=== PATIENT | male | born 1965 | race Caucasian/White ===

== ENCOUNTER 2021-06-02 09:50 | Emergency (ER) | payer MEDICARE, SELFPAY ==
--- NOTE | ~2021-06-02 | XR_ITS ---
EXAMINATION: XR CHEST CLINICAL INFORMATION: Cough. COMPARISON: Chest 12/22/2010. TECHNIQUE: 2 views of the chest were obtained. FINDINGS: Well-expanded and clear of acute process. There is minimal bilateral apical pleural thickening. The heart size and perivascular is normal. No gross bony abnormality. XR/XR chest 2V IMPRESSION: No acute pulmonary process seen. No major change from 2010
[2021-06-02 10:54] VITALS: BP 127/70; PULSE 58; RESP 15; TEMP 36.9; O2SAT 97; BMI 34.7
[2021-06-02 11:08] LABS: MANUAL DIFF FLAG NO
--- NOTE | 2021-06-02 11:17 | ED_ITS ---
HPI - General Adult General Chief complaint: Upper Respiratory Symptoms Stated complaint: vomiting blood Time Seen by Provider: 06/02/21 11:15 Source: patient, RN notes reviewed and ben day artist Mode of arrival: ambulatory Limitations: language barrier History of Present Illness HPI narrative: 55-year-old male with past medical history of seizures, hypertension, hypercholesteremia is here today for complaining of headache, cough, rhinorrhea, since last week. Patient reports that he had no ill contacts. Denies any subjective fever chills. Patient reports that when he wakes up in the morning his eyes feel very crusty, hard to open them up without washing them out with warm water. Reports to have a sinus pressure in the frontal and paranasal areas. Patient is here from [place], he is visiting friends for holidays. Patient reports that he has been coughing a lot and this morning when he coughed he had smears of blood in his sputum. Patient denies any chest pain. Reports that he has been constipated and does not remember when he actually had a bowel movement. Patient reports to have low back pain and back rib pain from coughing Onset (ago): day(s) Location: head and eyes Related Data Previous Rx's Medication Instructions Recorded albuterol sulfate 90 mcg/actuation 1 inh INHALATION QID PRN #8.5 g 06/02/21 aerosol inhaler benzonatate 100 mg capsule 100 mg PO BID PRN #20 cap 06/02/21 erythromycin 5 mg/gram (0.5 %) eye 0.5 inch OPHTHALMIC (EYE) BID #1 g 06/02/21 ointment ipratropium 20 mcg-albuterol 100 1 puff INHALATION Q6H #4 g 06/02/21 mcg/actuation mist for inhalation (Combivent Respimat) sennosides 8.6 mg tablet (Senokot) 8.6 mg PO BEDTIME PRN #20 tab 06/02/21 Allergies Allergy/AdvReac Type Severity Reaction Status Date / Time No Known Allergies Allergy Mild N/A Unverified 03/18/20 17:31 Review of Systems Review of Systems: Constitutional : No Weight loss, No Fever, No Chills, No Night Sweats, No Fatigue, No Malaise ENT/Mouth : No Hearing loss, No Ear Pain, Nasal Congestion, Sinus Pain, No Hoarseness, No sore throat, Rhinorrhea, No Swallowing Difficulty Eyes: No Eye Pain, No Swelling, No Redness, No Foreign Body, No Discharge, No Vision Changes Cardiovascular : No Chest Pain, No SOB, No Dyspnea on Exertion, No Orthopnea, No Edema, No Palpitations Respiratory : Cough, phlegm tinged with blood, No Wheezing, No Smoke Exposure, No Dyspnea Gastrointestinal : No Nausea, No Vomiting, No Diarrhea, No Constipation, No a bdominal Pain, No Hematochezia, No Melena Genitourinary : no irregular bleeding, No Dysuria, No Urinary Frequency, No Hematuria, No Urinary Incontinence, No Urgency, No Flank Pain, No Urinary Flow Changes, No Hesitancy Musculoskeletal : No joint pain, No Myalgias, No Joint Swelling Skin : No Skin Lesions, No rash Neuro : No Weakness, No Numbness, No Paresthesias, No Loss of Consciousness, No Dizziness, No Headache Psych : No Anxiety/Panic, No Depression, No SI/HI/AH/VH, No Social Issues, Yes all other systems are reviewed and are negative [facility] Past Medical History Medical History (Updated 06/02/21 @ 13:04 by Elayne Monaco, [facility]) Angina pectoris HTN (hypertension) Hypercholesteremia Seizures Social History Social History Advance Directives: No Advance Directives Information Provided: No Physical Exam Vital Signs: Vital Signs: Last Vital Signs Temp 97.5 F 06/02/21 12:42 Pulse 58 06/02/21 12:42 Resp 17 06/02/21 12:42 BP 119/62 06/02/21 12:42 Pulse Ox 96 06/02/21 12:42 BMI result Body Mass Index 34.7 Course Course Course Narrative: 55-year-old male with past medical history of hypertension, seizures, hyperlipidemia is here for multiple complaints. Patient reports to have headache, frontal sinuses and the paranasal sinuses tenderness. He reports that he has been coughing, cold symptoms, rhinorrhea, no fever chills, no ill contacts. Blood-tinged sputum this morning no yumiko blood. Patient reports lower back pain and rib pain from coughing. Patient also reports that he is constipated and has not had a bowel movement for several days. Exam negative for any tenderness, distension. Will do chest x-ray, CBC, CMP Reevaluation(s) Reevaluation #1: Chest x-ray negative for any acute processes. Lab negative for leukocytosis, normal chemistry. Will send patient home with Tessalon Perles, erythromycin ointment for conjunctivitis bilaterally. Patient is also constipated I will send him home with script for Senokot and docusate sodium Medical Decision Making Lab Data Result diagrams: 06/02/21 11:04 06/02/21 11:04 Labs: Lab Results 06/02/21 06/02/21 06/02/21 Range/Units 11:04 11:04 11:04 WBC 6.5 (4.8-10.8) X10*3/uL RBC 4.00 L (4.60-5.80) X10*6/uL Hgb 12.2 L (14.0-18.0) g/dl Hct 36.8 L (42.0-52.0) % MCV 92.0 (80.0-98.0) fL MCH 30.5 (27.0-33.0) pg MCHC 33.2 (31.0-36.0) g/dl RDW 12.9 (11.0-16.0) % Plt Count 306 (160-400) X10*3/uL MPV 10.8 (9.4-12.4) fL Immature Gran % (Auto) 0.2 (0.0-0.4) % Neut % (Auto) 60.9 (45-73) % Lymph % (Auto) 29.1 (20-40) % [place] % (Auto) 7.7 (2-11) % Eos % (Auto) 1.8 (0-4) % Baso % (Auto) 0.3 (0-2) % Lymph # (Auto) 1.9 (1.2-4.9) X10*3/uL [place] # (Auto) 0.5 (0.1-1.2) X10*3/uL Eos # (Auto) 0.1 (0.0-0.4) X10*3/uL Baso # (Auto) 0.0 (0.0-0.2) X10*3/uL Abs Immat Gran (auto) 0.01 (0.00-0.03) X10*3/uL Absolute Neuts (auto) 4.0 (2.0-8.3) x10*3/uL Absolute Nucleated RBC 0.000 (0.0-0.012) X10*3/uL Nucleated RBC % (auto) 0.0 (0.0-0.2) /100WBC Sodium 139 (135-145) mmol/L Potassium 4.4 (3.3-5.1) mmol/L Chloride 106 (96-108) mmol/L Carbon Dioxide 26 (22-29) mmol/L Anion Gap 11 L (12-20) BUN 8 L (9-16) mg/dL Creatinine 0.66 (0.5-1.4) mg/dL Estim Creat Clear Calc 138.2 Estimated GFR > 60 Random Glucose 99 (60-115) mg/dL Calcium 9.0 (8.4-10.2) mg/dL Total Bilirubin 0.4 (0.0-1.0) mg/dL AST 16 (5-37) U/L ALT 17 (0-40) U/L Alkaline Phosphatase 87 (39-117) U/L Total Protein 7.0 (6.5-8.0) g/dL Albumin 4.0 (3.5-5.0) g/dL Urine Color Urine Appearance Urine pH (5.0-8.0) Ur Specific [place] (1.005-1.025) Urine Protein (NEG-TRACE) MG/DL Urine Glucose (UA) (NEG) MG/DL Urine Ketones (NEG) MG/DL Urine Blood (NEG) Urine Nitrite (NEG) Ur Leukocyte Esterase (NEG) COVID-19 (MEGHNA) Negative (Negative) COVID-19 Clin Com See Note 06/02/21 Range/Units 11:52 WBC (4.8-10.8) X10*3/uL RBC (4.60-5.80) X10*6/uL Hgb (14.0-18.0) g/dl Hct (42.0-52.0) % MCV (80.0-98.0) fL MCH (27.0-33.0) pg MCHC (31.0-36.0) g/dl RDW (11.0-16.0) % Plt Count (160-400) X10*3/uL MPV (9.4-12.4) fL Immature Gran % (Auto) (0.0-0.4) % Neut % (Auto) (45-73) % Lymph % (Auto) (20-40) % [place] % (Auto) (2-11) % Eos % (Auto) (0-4) % Baso % (Auto) (0-2) % Lymph # (Auto) (1.2-4.9) X10*3/uL [place] # (Auto) (0.1-1.2) X10*3/uL Eos # (Auto) (0.0-0.4) X10*3/uL Baso # (Auto) (0.0-0.2) X10*3/uL Abs Immat Gran (auto) (0.00-0.03) X10*3/uL Absolute Neuts (auto) (2.0-8.3) x10*3/uL Absolute Nucleated RBC (0.0-0.012) X10*3/uL Nucleated RBC % (auto) (0.0-0.2) /100WBC Sodium (135-145) mmol/L Potassium (3.3-5.1) mmol/L Chloride (96-108) mmol/L Carbon Dioxide (22-29) mmol/L Anion Gap (12-20) BUN (9-16) mg/dL Creatinine (0.5-1.4) mg/dL Estim Creat Clear Calc Estimated GFR Random Glucose (60-115) mg/dL Calcium (8.4-10.2) mg/dL Total Bilirubin (0.0-1.0) mg/dL AST (5-37) U/L ALT (0-40) U/L Alkaline Phosphatase (39-117) U/L Total Protein (6.5-8.0) g/dL Albumin (3.5-5.0) g/dL Urine Color YELLOW Urine Appearance CLEAR Urine pH 6.5 (5.0-8.0) Ur Specific [place] 1.010 (1.005-1.025) Urine Protein NEG (NEG-TRACE) MG/DL Urine Glucose (UA) NEG (NEG) MG/DL Urine Ketones NEG (NEG) MG/DL Urine Blood NEG (NEG) Urine Nitrite NEG (NEG) Ur Leukocyte Esterase NEG (NEG) COVID-19 (MEGHNA) (Negative) COVID-19 Clin Com Imaging Data Chest x-ray: Attestation: I personally reviewed and interpreted this imaging study as follows: Radiologist's impression: FINDINGS: Well-expanded and clear of acute process. There is minimal bilateral apical pleural thickening. The heart size and perivascular is normal. No gross bony abnormality. Discharge Plan Discharge Clinical Impression: Viral infection Conjunctivitis Qualifiers: Conjunctivitis type: acute Acute conjunctivitis type: viral Laterality: bilateral Qualified Code(s): B30.9 - Viral conjunctivitis, unspecified Constipation Qualifiers: Constipation type: chronic idiopathic constipation Qualified Code(s): K59.04 - Chronic idiopathic constipation Patient Disposition: Home, Self-Care Instructions: Constipation (ED), Viral Syndrome (ED), Conjunctivitis (ED) Additional Instructions: Hoy lo vieron aqu? por james enfermedad viral. Todos tasha an?lisis de laboratorio y radiograf?as fueron negativos para cualquier hallazgo tremayne. Lo enviar?n a casa con un mer?ento antibi?dax en los ojos; aseg?rese de tomarlo jules los pr?ximos 7 d?as. Lo enviar?n a casa con medicamentos para aliviar la tos. Recibir? un nita?n de medicamentos para defecar. Prescriptions: New Combivent Respimat 20-100 mcg/actuation mist 1 puff inhalation Q6H Qty: 4 RF: 0 albuterol sulfate 90 mcg/actuation HFA aerosol inhaler 1 inh inhalation QID PRN (Reason: shortness of breath or wheezing) Qty: 8.5 RF: 0 erythromycin 5 mg/gram (0.5 %) ointment 0.5 inch ophthalmic (eye) BID Qty: 1 RF: 0 benzonatate 100 mg capsule 100 mg PO BID PRN (Reason: cough) Qty: 20 RF: 0 sennosides [Senokot] 8.6 mg tablet 8.6 mg PO BEDTIME PRN (Reason: constipation) Qty: 20 RF: 0 Interventions: ED Discharge Assessment Last Done: 06/02/21 13:08 Discharge Date/Time: 06/02/21 13:24
[2021-06-02 11:19] LABS: Basophils Percent Auto 0.3 % (0-2); Eosinophils Absolute Auto 0.1 X10*3/uL (0.0-0.4); Eosinophils Percent Auto 1.8 % (0-4); Hematocrit 36.8 % (42.0-52.0); Hemoglobin 12.2 g/dl (14.0-18.0); Imm Gran Abs Auto 0.01 X10*3/uL (0.00-0.03); Imm Gran Pct Auto 0.2 % (0.0-0.4); Lymphocytes Absolute Auto 1.9 X10*3/uL (1.2-4.9); Lymphocytes Percent Auto 29.1 % (20-40); Mean Corpuscular HGB Conc 33.2 g/dl (31.0-36.0); Mean Corpuscular Hemoglobin 30.5 pg (27.0-33.0); Mean Platelet Volume 10.8 fL (9.4-12.4); Monocytes Absolute Auto 0.5 X10*3/uL (0.1-1.2); Monocytes Percent Auto 7.7 % (2-11); Neutrophils Percent Auto 60.9 % (45-73); Platelet Count 306 X10*3/uL (160-400); Red Cell Distribution Width 12.9 % (11.0-16.0); White Blood Count 6.5 X10*3/uL (4.8-10.8)
[2021-06-02 11:28] LABS: Alanine Aminotransferase 17 U/L (0-40); Alkaline Phosphatase 87 U/L (39-117); Anion Gap 11 (12-20); Aspartate Amino Transferase 16 U/L (5-37); Bilirubin Total 0.4 mg/dL (0.0-1.0); Blood Urea Nitrogen 8 mg/dL (9-16); Carbon Dioxide 26 mmol/L (22-29); Chloride 106 mmol/L (96-108); Creatinine Clr Calc Pharmacy 138.2; Estimated Glomerular Filt Rate > 60; Glucose Random 99 mg/dL (60-115); Potassium 4.4 mmol/L (3.3-5.1); Sodium 139 mmol/L (135-145)
[2021-06-02 11:30] LABS: COVID-19 Test Negative (Negative)
[2021-06-02 11:51] VITALS: BP 140/65; PULSE 78; RESP 16; O2SAT 97
[2021-06-02 12:01] LABS: Appearance Urine CLEAR; Color Urine YELLOW; Glucose Urine UA NEG (NEG); Leukocyte Esterase Urine NEG (NEG); Nitrite Urine NEG (NEG); PH 6.5 (5.0-8.0); Urine Blood NEG (NEG); Urine Ketones NEG (NEG); Urine Protein NEG (NEG-TRACE)
[2021-06-02 12:42] VITALS: BP 119/62; PULSE 58; RESP 17; TEMP 36.4; O2SAT 96
[2021-06-02] MEDS: Erythromycin Base 0.5% Oph Oin 1 GM TUBE 1 CM EYE-BOTH (13:03)
[2021-06-02] MEDS: Benzonatate 100 MG CAPSULE PO (13:03)
== END 2021-06-02 13:24 | disposition home or self-care (01) ==
PROVIDERS: Emergency Provider Emergency Medicine Emergency Medical Services
DX: B34.9 Viral infection, unspecified (principal); B30.9 Viral conjunctivitis, unspecified; K59.04 Chronic idiopathic constipation; Z20.822 Contact with and (suspected) exposure to COVID-19; M54.50 Low back pain, unspecified; R51.9 Headache, unspecified; I10 Essential (primary) hypertension; E78.5 Hyperlipidemia, unspecified
CPT/HCPCS: 36415; 71046; 80053; 81003; 85025; 87635; 99283; 99284